=== PATIENT | male | born 1970 | race African-American/Black ===

== ENCOUNTER 2023-11-05 09:23 | Emergency (ER) | payer OTHER, SELFPAY ==
--- NOTE | ~2023-11-05 | XR_ITS ---
EXAMINATION: XR knee RT 3V DATE: 11/05/2023 11:56 INDICATION: Severe anterior right knee pain TECHNIQUE: Anteroposterior, sunrise and lateral views of the right knee were obtained COMPARISON: None. FINDINGS: Interference screws at the distal femur and proximal tibia consistent with prior anterior cruciate li gament reconstruction. There is an additional screw and washer at the anterior tibial tubercle which could be related to the anterior cruciate ligament reconstruction or potentially a distal patellar te ndon repair. 5 mm lateral patellar subluxation. Bone alignment is otherwise normal. No fracture. Tric ompartmental osteoarthritis with small marginal osteophytes in all 3 compartments of the knee. At pre[address]na st mild joint space narrowing in the medial compartment best appreciated on the lateral projection an d at the lateral aspect of the patellofemoral compartment. Moderate-sized right knee joint effusion. There are several loose osteochondral bodies in the posterior recesses of the knee and a likely Tobin 's cyst. IMPRESSION: 1. Postoperative changes and at least mild tricompartmental osteoarthritis at the right knee with mod erate-sized joint effusion as detailed above. No acute osseous abnormality. Reviewed, dictated and finalized at location A. IMPRESSION: 1. Postoperative changes and at least mild tricompartmental osteoarthritis at t he right knee with moderate-sized joint effusion as detailed above. No acute os seous abnormality.
--- NOTE | ~2023-11-05 | US_ITS ---
EXAMINATION:US venous doppler LE RT INDICATION:Right knee pain TECHNIQUE: Multiple grayscale, color flow and Doppler images of the right lower extremity deep venous systems were obtained and reviewed. COMPARISON:No prior studies for comparison. FINDINGS: The common femoral, superficial femoral and popliteal veins demonstrate normal respiratory variation, augmentation and compressibility. Color flow is also seen within the posterior tibial, pe roneal, greater saphenous and profunda veins. IMPRESSION: 1: No lower extremity deep venous thrombosis. Reviewed, dictated and finalized at location B.
--- NOTE | ~2023-11-05 | XR_ITS ---
XR ankle RT min 3V 11/05/2023 11:55 Indication: Severe lateral ankle pain with swelling Procedure: 4 views right ankle Comparison: No prior studies for comparison. Findings: There is moderate osteoarthritis of the ankle with small loose bodies at the medial malleol us. There is moderate diffuse soft tissue swelling. No acute fracture or traumatic malalignment. Tanika r dome is unremarkable. There is polyarticular degenerative change of the midfoot. Impression: 1: Moderate osteoarthritis of the right ankle. Reviewed, dictated and finalized at location B. Impression: 1: Moderate osteoarthritis of the right ankle.
[2023-11-05 09:25] VITALS: BP 134/84; PULSE 97; RESP 16; TEMP 36.8; O2SAT 99
[2023-11-05] MEDS: HYDROcodone/acetaminophen (*CRX) 5-325 MG TABLET 1 TAB PO (11:37)
--- NOTE | 2023-11-05 12:08 | ED.EXTPRO ---
HPI - Extremity Problem General Chief complaint: Extremity Problem,Nontraumatic Stated complaint: RIGHT LOWER EXTREMITITY SWELLING X3 DAYS Time Seen by Provider: 11/05/23 11:08 History of Present Illness HPI Narrative: 53-year-old male presenting to the emergency department for evaluation for right knee pain. Patient reports pain has been bothering him since Thursday. Patient has had worsening knee swelling and worsening right ankle swelling. Patient does have prior history of surgery on the knee due to meniscus and ACL injury. Patient denies a specific incident of fall or injury. 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 Related Data Allergies Allergy/AdvReac Type Severity Reaction Status Date / Time No Known Allergies Allergy Verified 11/05/23 11:35 Review of Systems Review of Systems: All systems reviewed & are unremarkable except as noted in HPI and below Exam Narrative: APPEARANCE: Well appearing, no pain, no distress, well-nourished. HEAD: normocephalic, atraumatic. EYES: PERRLA/EOMI, conjunctivae clear. NOSE: Normal no drainage EARS:TMS clear with good light reflex. THROAT: Pharynx clear, no exudate. NECK: Supple. No adenopathy, no masses. RESPIRATORY: Airway patent, respirations nonlabored. Clear to auscultation bilaterally, no rales, rhonchi, wheezing. CARDIOVASCULAR: Regular rate and rhythm without murmurs rubs or gallops. ABDOMINAL: Soft, nontender, nondistended, normal bowel sounds MUSCULOSKELETAL: Right-sided knee effusion and right lateral ankle tenderness NEURO: Alert. Cranial nerves II through XII intact. Good gait. Good coordination SKIN: Warm, dry. Normal Color Course Vital Signs Vital signs: Vital Signs Temperature 98.2 F 11/05/23 09:25 Pulse Rate 97 11/05/23 09:25 Respiratory Rate 16 11/05/23 09:25 Blood Pressure 134/84 11/05/23 09:25 Pulse Oximetry 99 11/05/23 09:25 Oxygen Delivery Room Air 11/05/23 09:25 Temperature 98.3 F 11/05/23 12:34 Pulse Rate 78 11/05/23 12:34 Respiratory Rate 17 11/05/23 12:34 Blood Pressure 137/62 11/05/23 12:34 Pulse Oximetry 100 11/05/23 12:34 Oxygen Delivery Room Air 11/05/23 09:25 MDM - Extremity (Nontraumatic) MDM Narrative Medical decision making narrative: 53-year-old male presenting emergency department for evaluation for right leg pain. Patient does have effusion of the knee and ankle. Ultrasound shows no evidence of DVT. X-rays were negative for acute fracture. Patient was provided knee immobilizer and crutches for limited weight-bearing encouraged close follow-up with Orthopedics. Differential Diagnosis Differential diagnosis: Likely cellulitis, superficial thrombophlebitis and lower extremity edema Imaging Data Radiologist's impression: Impressions Venous Doppler Study 11/05/23 10:49 IMPRESSION: 1: No lower extremity deep venous thrombosis. Ankle X-Ray 11/05/23 11:58 Impression: 1: Moderate osteoarthritis of the right ankle. Knee X-Ray 11/05/23 11:58 IMPRESSION: 1. Postoperative changes and at least mild tricompartmental osteoarthritis at the right knee with moderate-sized joint effusion as detailed above. No acute osseous abnormality. Discharge Plan Discharge Clinical Impression: Acute knee pain, Effusion of right knee, Ankle pain, right Patient Disposition: Home, Self-Care Condition: Stable Instructions: Antibiotic Form, Ankle Sprain (ED), Crutch Instructions (ED), Knee Pain (ED), Knee Immobilizer (ED) Additional Instructions: Knee immobilizer as directed. Crutches for limited weight-bearing. Tylenol and ibuprofen for pain control. Have close follow-up with Orthopedics. If you have any worsening symptoms and please call or return to the emergency department. Follow-up/Referrals: Hieu Hamilton MD [Physician] - Perla,Olesya Srinivasan NP [Primary Care Provider] -
[2023-11-05 12:34] VITALS: BP 137/62; PULSE 78; RESP 17; TEMP 36.8; O2SAT 100
== END 2023-11-05 12:36 | disposition home or self-care (01) ==
PROVIDERS: Emergency Provider Emergency Medicine; PCP Nurse Practitioner
DX: M25.561 Pain in right knee (principal); M25.461 Effusion, right knee; M25.571 Pain in right ankle and joints of right foot
CPT/HCPCS: 73562; 73610; 93971; 99284; A9270